=== PATIENT | female | born 1995 | race Caucasian/White ===

== ENCOUNTER 2017-05-18 19:11 | Inpatient (IN) | payer MEDICAID ==
[~2017-05-18] VITALS: Ht 170.2 cm; Wt 87.8 kg
[2017-05-18 21:48] VITALS: BP 109/71
[2017-05-18] MEDS ORDERED: SODIUM CHLORIDE 0.9% 1,000 ML IV SCH (23:41)
[2017-05-19] MEDS ORDERED: ACETAMINOPHEN 325 MG TABLET PO PRN
[2017-05-19] MEDS ORDERED: PLEASE ENTER ALLERGIES MC SCH ×2 (00:30)
[2017-05-19 02:30] VITALS: BP 98/62
[2017-05-19] MEDS: CEPHALEXIN 250 MG CAPSULE HOMEMEDPO SCH ×5 (05:33→20:53)
[2017-05-19 06:07] LABS: HEMATOCRIT 33.7 % (34.6-47.8); HEMOGLOBIN 11.1 g/dL (11.7-16.4); WHITE BLOOD COUNT 7.5 x10^3/uL (4.5-13.2)
[2017-05-19 06:24] LABS: BLOOD UREA NITROGEN 6 mg/dL (7-18)
[2017-05-19 08:00] VITALS: BP 121/79
[2017-05-19 08:26] LABS: IS PT STATUS REG ER OR PRE ER? NO
[2017-05-19] MEDS: D5%-0.9% NACL 1,000 ML IV SCH ×2 (10:39→20:52)
[2017-05-19 14:30] VITALS: BP_SYST 111; BP_SYST 114; BP_SYST 126; BP_DIAS 70; BP_DIAS 73; BP_DIAS 76
[2017-05-19] MEDS ORDERED: ONDANSETRON 2MG/ML, 2ML IVPush PRN ×2 (19:00)
[2017-05-19 20:47] VITALS: BP 109/72
[2017-05-20 03:31] VITALS: BP 98/62
[2017-05-20 05:16] LABS: HEMATOCRIT 31.7 % (34.6-47.8); HEMOGLOBIN 10.6 g/dL (11.7-16.4); WHITE BLOOD COUNT 7.5 x10^3/uL (4.5-13.2)
[2017-05-20] MEDS: CEPHALEXIN 250 MG CAPSULE HOMEMEDPO SCH ×4 (05:23→16:00)
[2017-05-20] MEDS: D5%-0.9% NACL 1,000 ML IV SCH ×2 (05:24→16:00)
[2017-05-20 05:31] LABS: ASPARTATE AMINO TRANSFERASE 7 U/L (15-37); BLOOD UREA NITROGEN 7 mg/dL (7-18)
[2017-05-20 09:01] VITALS: BP 112/63
[2017-05-20] MEDS: PRENATAL VIT/IRON/FA 1 EACH TABLET PO SCH (09:30)
[2017-05-20 15:26] VITALS: BP 115/72
[2017-05-20 20:00] VITALS: BP 106/69
[2017-05-20] MEDS: ACETAMINOPHEN 325 MG TABLET PO PRN (20:04)
[2017-05-21] MEDS: D5%-0.9% NACL 1,000 ML IV SCH (02:00)
[2017-05-21 02:15] VITALS: BP 106/73
[2017-05-21 05:56] LABS: HEMATOCRIT 32.9 % (34.6-47.8); WHITE BLOOD COUNT 7.1 x10^3/uL (4.5-13.2)
[2017-05-21] MEDS: CEPHALEXIN 250 MG CAPSULE HOMEMEDPO SCH ×3 (06:00→15:36)
[2017-05-21 06:14] LABS: TOTAL IRON BINDING CAPACITY 362 mcg/dL (250-450)
[2017-05-21 08:25] VITALS: BP 106/73
[2017-05-21] MEDS: PRENATAL VIT/IRON/FA 1 EACH TABLET PO SCH (09:00)
[2017-05-21] MEDS: ACETAMINOPHEN 325 MG TABLET PO PRN (13:59)
[2017-05-21] MEDS ORDERED: PREN1TAB14 PO (15:10)
[2017-05-25 10:07] LABS: ACETOHEXAMIDE Negative ug/mL (20-60); CHLORPROPAMIDE Negative ug/mL (75-250); GLIMEPIRIDE Negative ng/mL (80-250); GLIPIZIDE Negative ng/mL (200-1000); GLYBURIDE Negative ng/mL (UP TO 1500); NATEGLINIDE Negative ng/mL (UP TO 10000); REPAGLINIDE Negative ng/mL (UP TO 200); TOLAZAMIDE Negative ug/mL (UP TO 80); TOLBUTAMIDE Negative ug/mL (40-100)
== END 2017-05-21 17:46 | disposition home or self-care (01) | DRG 781 ==
LOC: 5SO 21:30
PROVIDERS: ADMIT Internal Medicine; ATTEND Hospitalist
DX: O99.282 Endocrine, nutritional and metabolic diseases complicating pregnancy, second trimester (principal); E86.9 Volume depletion, unspecified; R55 Syncope and collapse; O23.42 Unspecified infection of urinary tract in pregnancy, second trimester; E16.2 Hypoglycemia, unspecified; Z3A.16 16 weeks gestation of pregnancy; D50.9 Iron deficiency anemia, unspecified; H54.0 Blindness, both eyes; N95.1 Menopausal and female climacteric states; O21.0 Mild hyperemesis gravidarum; O99.012 Anemia complicating pregnancy, second trimester; Z81.8 Family history of other mental and behavioral disorders; Z82.3 Family history of stroke; Z82.49 Family history of ischemic heart disease and other diseases of the circulatory system; Z87.891 Personal history of nicotine dependence
CPT/HCPCS: 36415; 76805; 80048; 80053; 80377; 82962; 83525; 83540; 83550; 84206; 84484; 84681; 85025; 93306; J7042; G0481; J7030

== ENCOUNTER 2021-03-10 14:29 | Emergency (ER) | payer MEDICAID ==
[~2021-03-10] VITALS: Ht 167.6 cm; Wt 104.1 kg
[~2021-03-10 14:29] MED LIST: PREN1TAB14 PO
[2021-03-10 14:49] VITALS: BP 99/50
--- NOTE | 2021-03-10 16:39 | NUR ---
HISTORICAL RECORDS ADMINISTRATOR: PT CALLED FOR ROOM, NO ANSWER
--- NOTE | 2021-03-10 17:00 | NUR ---
[employer] COORDINATOR: CALLED FOR ROOM, NO ANSWER
--- NOTE | 2021-03-10 17:17 | NUR ---
LOCATION MANAGER: CALLED FOR ROOM, NO ANSWER
== END 2021-03-10 17:19 | disposition left against medical advice (07) ==
LOC: ED 15:00
DX: R10.9 Unspecified abdominal pain (principal); J02.9 Acute pharyngitis, unspecified; Z53.21 Procedure and treatment not carried out due to patient leaving prior to being seen by health care provider